=== PATIENT | female | born 1995 ===

== ENCOUNTER 2020-05-25 09:19 | Outpatient (CLI) | payer MEDICAID, OTHER ==
[2020-05-25 10:00] VITALS: BP 128/70
[2020-05-25] MEDS ORDERED: LACTATED RINGERS 1,000 ML IV SCH (10:00)
[2020-05-25 10:38] LABS: Bilirubin,Urine NEG (Negative); Blood,Urine NEG (Negative); Color,Urine Yellow (Yellow); Mucus,Urine 1+ /HPF; Protein,Urine <15 mg/dL mg/dL (Negative)
[2020-05-25 10:47] LABS: Amphetamine Screen,Urine Negative; Benzodiazepines Screen,Urine Negative; Cocaine Screen,Urine Negative; Methadone Screen,Urine Negative; Opiate Screen,Urine Negative
[2020-05-25 11:05] LABS: Cannabinoid Screen,Urine Positive
[2020-05-25] MEDS ORDERED: ONDANSETRON 4 MG/2 ML INJ IV NR (11:20)
[2020-05-25] MEDS ORDERED: BICITRA ORAL LIQD 30ML PO ONE (12:00)
== END 2020-05-25 12:36 | disposition home or self-care (01) ==
LOC: TRG 09:19 → APU 09:20 → TRG 12:36
PROVIDERS: ATTEND Obstetrics & Gynecology
DX: O21.2 Late vomiting of pregnancy (principal); O47.02 False labor before 37 completed weeks of gestation, second trimester; O99.012 Anemia complicating pregnancy, second trimester; D64.9 Anemia, unspecified; Z3A.21 21 weeks gestation of pregnancy
CPT/HCPCS: 59025; 80307; 81001; 87086; 96361; 96365; J2405; J7120; 96360; 96374